=== PATIENT | female | born 1950 | race Caucasian/White ===

== ENCOUNTER 2019-02-17 09:33 | Day surgery (SDC) | payer MEDICARE, BC ==
[2019-02-12 11:42] VITALS: BMI 25.1
[~2019-02-17 09:33] MED LIST: DEXAMETHASONE SOD PHOSPHATE 10 MG/ML 1 ML VIAL IV ONE; LACTATED RINGERS 1,000 ML IV SCH; LIDOCAINE 1% 20 ML VIAL (10MG/ML) FOR IV START INTRADERMA PRN; MORPHINE SULFATE 4 MG/ML SYRINGE IV PRN; MOXIFLOXACIN HCL 0.5% DROPS 3 ML BTL OP ONE; ONDANSETRON 4 MG/2 ML VIAL IVP ONE; TETRACAINE 0.5% OPHTH (PF) DROPS 4 ML BTL OP ONE; TIMOLOL 0.5% OPHTH DROPS 5 ML BTL OP ONE
[2019-02-17 10:52] VITALS: TEMP 97.4
[2019-02-17] MEDS: CYCLOPENTOLATE 1% OPHTH SOLN 2 ML BTL OP ONE ×3 (10:53→11:05)
[2019-02-17] MEDS: PHENYLEPHRINE 2.5% OPHTH DRP 2ML OP NR ×3 (10:56→11:08)
[2019-02-17] MEDS ORDERED: fentaNYL (PF) 50 MCG/ML 2 ML AMP ONE (11:27)
[2019-02-17] MEDS ORDERED: MIDAZOLAM 2 MG/2 ML VIAL ONE (11:27)
[2019-02-17] MEDS ORDERED: DUOVISC KIT (GREEN BOX) INTRAOCULA ONE (11:36)
[2019-02-17] MEDS ORDERED: LIDOCAINE 1% (PF) 10MG/ML VIAL SQ ONE (11:36)
[2019-02-17] MEDS ORDERED: BALANCED SALT IRRIG SOLN COMB2 15 ML IRRIG.SOLN INTRAOCULA ONE (11:36)
[2019-02-17] MEDS ORDERED: ATROPINE OPHTH SOLN 1% 5ML BTL LEFT EYE ONE (11:36)
[2019-02-17] MEDS ORDERED: EPINEPHrine (PF) 0.3 ML in BALANCED SALT IRRIG SOLN COMB2 500 ML IRRIGATION ONE (11:37)
[2019-02-17] MEDS ORDERED: TRYPAN BLUE 0.06% SYRINGE 0.5 ML SYRINGE INTRAOCULA ONE (11:47)
--- NOTE | 2019-02-17 12:21 | P.OP ---
Date of Procedure: 02/17/19 Preoperative Diagnosis: NS & PSC, POAG mild stage and regular astigmatism Postoperative Diagnosis: same Procedure(s) Performed: PIOL, OS, goniotomy left eye Implants: AO1UV 16.00 Anesthesia: MAC Surgeon: Oziel Mcarthur Estimated Blood Loss (ml): 3 Pathology: none sent Condition: stable Disposition: same day Indications for Procedure: blurry vision and glaucoma Description of Procedure: no complications
[2019-02-17 12:37] VITALS: BP 130/58; PULSE 55; RESP 15
--- NOTE | 2019-02-17 23:43 | OP ---
OPERATIVE REPORT DATE OF SURGERY: February 17, 2019. PROCEDURES PERFORMED: Phacoemulsification of cataract and intraocular lens implant of the left eye with goniotomy. PREOPERATIVE DIAGNOSES: Nuclear sclerosis, cortical sclerosis, posterior subcapsular cataract and pigmentary glaucoma, mild stage. POSTOPERATIVE DIAGNOSIS: Nuclear sclerosis, cortical sclerosis, posterior subcapsular cataract and pigmentary glaucoma, mild stage. SURGEON: Dr. Oziel Mcarthur. ANESTHESIA: Topical. ESTIMATED BLOOD LOSS: Probably 3 mL. SPECIMEN: Taken none. NARRATIVE: After obtaining the appropriate consent, the patient was brought to the operating room. There she was placed under cardiac monitoring, prepped and draped in the usual sterile manner. She was approached from her left temporal side and at the 5 o'clock position an MVR blade was used to create a paracentesis port through this opening 1% lidocaine MPF 50 50 mix with balanced salt solution was injected into the anterior chamber. This was followed by installation of trypan blue which was left in the eye for 1 minute. This was irrigated away and replaced with Viscoat. On the center of the patient's eye, a 5.5 mm Rustam ring was placed centrally over the Purkinje reflex. At the 3 o'clock position a 2.75 mm trinh keratome was used to create a self-sealing corneal flap incision in Langerman's fashion. Additional Viscoat was used to stabilize the anterior chamber. The patient was asked to rotate her head to her right approximately 45 degrees and a gonio prism was placed on the patient's eye. Identification of the trabecular meshwork was readily identified with the trypan blue stain and using a darren and meet method, a goniotomy using the [place] dual blade knife removed the trabecular meshwork for approximately 5 clock hours on the nasal side of the eye. She was then rotated back to the normal supine position and a cystotome was introduced to begin a continuous tear capsulorrhexis which was completed using the Utrata forceps. Care was taken to ensure that the size of the rhexis was at least the size of the inked marked on the patient's cornea. Hydrodissection and hydrodelineation. The lens was accomplished with balanced salt solution. Phacoemulsification lens utilizing phaco chop was approximately 8 seconds at 15% power. This was followed by removal of the remaining cortex under irrigation aspiration along with careful polishing of the posterior capsule in the capsule vacuum mode. Provisc was then used to stabilize the capsular bag and using the [place] and [place] capsule polisher devices the entire 360 degrees of the capsular bag was covered from the equator over the anterior capsule leaflets removing as much of the cortexes as easily identified. The temporal incision was then enlarged slightly with a keratome and a Bausch and Lomb crystal lens AOU 2V 16 diopter posterior chamber intraocular lens was then inserted into the capsular bag without difficulty. The remaining viscoelastic was then removed from in and around the intraocular lens in the eye and the lid intraocular lens was rotated approximately 270 degrees, insuring that there was no debris at the equator of the bag. The eye was brought slightly above normal intra-ocular pressure approximately 25-30 mmHg by palpation, thereby tamponading any residual bleeding from the goniotomy incision and the paracentesis as well as the temporal incision were covered with ReSure. The patient then received 2 drops of moxifloxacin, 2 drops of 1% atropine and 2 drops of 0.5% timolol. She was then lightly patched and shielded in the usual manner. There were no complications from the procedure. She tolerated the procedure well and was returned to outpatient recovery in good condition. MMODL / IJN: [id number] /
== END 2019-02-17 13:04 | disposition home or self-care (01) ==
LOC: OR 09:33
PROVIDERS: ATTEND Ophthalmology
DX: H25.13 Age-related nuclear cataract, bilateral (principal); H52.222 Regular astigmatism, left eye; H40.1332 Pigmentary glaucoma, bilateral, moderate stage; H21.233 Degeneration of iris (pigmentary), bilateral; H35.372 Puckering of macula, left eye; H47.391 Other disorders of optic disc, right eye; H25.013 Cortical age-related cataract, bilateral; H00.023 Hordeolum internum right eye, unspecified eyelid; H00.026 Hordeolum internum left eye, unspecified eyelid; H52.13 Myopia, bilateral; H52.4 Presbyopia; K21.9 Gastro-esophageal reflux disease without esophagitis; Z87.891 Personal history of nicotine dependence; H25.042 Posterior subcapsular polar age-related cataract, left eye; I10 Essential (primary) hypertension; E78.5 Hyperlipidemia, unspecified; I48.92 Unspecified atrial flutter; L40.9 Psoriasis, unspecified; Z79.890 Hormone replacement therapy; Z79.51 Long term (current) use of inhaled steroids; Z79.2 Long term (current) use of antibiotics; Z79.899 Other long term (current) drug therapy; Z79.01 Long term (current) use of anticoagulants; Z88.8 Allergy status to other drugs, medicaments and biological substances
CPT/HCPCS: 66984; 65820; V2632; V2788; J2250; J0171; J3010; J2001

== ENCOUNTER → 2019-03-24 | Day surgery (SDC) | payer MEDICARE, BC, OTHER ==
[2019-03-22 14:14] VITALS: BMI 26.3
[~2019-03-24] MED LIST changes: +BALANCED SALT IRRIG SOLN COMB2 15 ML IRRIG.SOLN IRRIGATION ONE; +CHONDROITIN-SOD HYALURONATE 1 EACH SYRINGE (0.75 ML) INTRAOCULA ONE; +DUOVISC KIT (GREEN BOX) INTRAOCULA ONE; +EPINEPHrine (PF) 0.3 ML in BALANCED SALT IRRIG SOLN COMB2 500 ML IRRIGATION ONE; +LIDOCAINE 1% (PF) 10MG/ML VIAL SQ ONE; +MIDAZOLAM 2 MG/2 ML VIAL IV ONE; +MIDAZOLAM 2 MG/2 ML VIAL ONE; -MORPHINE SULFATE 4 MG/ML SYRINGE IV PRN; +TRYPAN BLUE 0.06% SYRINGE 0.5 ML SYRINGE INTRAOCULA ONE; +fentaNYL (PF) 50 MCG/ML 2 ML AMP ONE
[2019-03-24] MEDS: CYCLOPENTOLATE 1% OPHTH SOLN 2 ML BTL OP ONE ×3 (13:11→13:26)
[2019-03-24 13:13] VITALS: RESP 18; TEMP 97.4
[2019-03-24] MEDS: PHENYLEPHRINE 2.5% OPHTH DRP 2ML OP NR ×3 (13:15→13:29)
--- NOTE | 2019-03-24 15:08 | P.OP ---
Date of Procedure: 03/24/19 Preoperative Diagnosis: NS & CS & POAG mild stage Postoperative Diagnosis: same Procedure(s) Performed: goniotomy & pciol, OD Implants: BL1UT 15 x 2.00 Anesthesia: MAC Surgeon: Oziel Mcarthur Estimated Blood Loss (ml): 5 Pathology: none sent Condition: stable Disposition: same day Indications for Procedure: blurry vision and glaucoma control Operative Findings: no ccomplications
[2019-03-24 15:31] VITALS: BP 120/68; PULSE 65
--- NOTE | 2019-03-25 07:48 | OP ---
OPERATIVE REPORT DATE OF SURGERY: 03/24/2019. PROCEDURE: Phacoemulsification of the cataract with an intra-ocular lens implant and goniotomy of the right eye. PREOPERATIVE DIAGNOSES: Nuclear sclerosis, cortical sclerosis, regular astigmatism, and primary open- angle glaucoma, moderate stage. POSTOPERATIVE DIAGNOSES: Nuclear sclerosis, cortical sclerosis, regular astigmatism, and primary open- angle glaucoma, moderate stage. SURGEON: Dr. Oziel Mcarthur ANESTHESIA: Topical. ESTIMATED BLOOD LOSS: Less than 5 mL. SPECIMEN TAKEN: None. NARRATIVE: After obtaining the appropriate consent, the patient was brought to the operating room. There she was asked to sit upright and the axis of 0 and 180 degrees were identified and marked with a gentian rip marker. She was then placed in the proper supine position under cardiac monitoring, then prepped and draped in the usual sterile manner. She was approached from her right temporal side and at the 11 o'clock position an MVR blade was used to create a paracentesis port. Through this opening 1% lidocaine MPF 50- 50 mix of balanced salt solution was injected into the anterior chamber. This was followed by installation of Trypan blue which was left to dwell for approximately 1 minute. Trypan blue was then irrigated from the anterior chamber and the anterior chamber was then stabilized with Viscoat. At the 9 o'clock position, a 2.75 mm trinh keratome was used to create a self-sealing corneal flap incision in a Langerman's fashion. Additional Viscoat was placed on the patient's cornea. The patient was then asked to rotate approximately 45 degrees to her left and maintain her gaze in that general direction. A gonioscopy prism was placed on the patient's eye and the trabecular meshwork was readily identified. Using a darren and meet method, the [place] dual blade goniotomy knife was passed across the anterior chamber of the eye and approximately 5 clock hours of trabecular meshwork were removed from the angle. A moderate amount of bleeding was noted as would be expected. The patient was returned to the normal supine position and a 5.5 mm Rustam ring was placed on the patient's cornea. This was followed by placement of a corneal marking instrument set to an axis of 116 degrees as previously identified on topography information, which was also enhanced with a gentian rip marker. A cystotome was then introduced into the anterior chamber to begin a continuous tear capsulorrhexis which was then completed using the Utrata forceps. Hydrodissection and hydrodelineation of the lens were accomplished with balanced salt solution. Phacoemulsification lens utilizing phaco chop was accomplished in 13.31 seconds at 12% power. Additional xylocaine MPF was instilled into the anterior chamber. This was followed by removal of the remaining cortex from the capsular bag along with careful polishing of the posterior capsule under the capsule polishing mode. Provisc was then used to stabilize the capsular bag and using [place] and arley corneal polishing instruments, the underside of the anterior capsular leaflet as well as the equator were cleaned as effectively possible with these instruments for approximately 360 degrees. The temporal incision was then enlarged slightly with a keratome and a Bausch and Lomb true line model BL1UT 15 diopter x 2 diopter posterior chamber intraocular lens was then inserted into the capsular bag without difficulty. The irrigation aspiration instrument was then introduced to remove the remaining cortex as well as the viscoelastic material. The tip of the instrument was then used to also rotate the intra-ocular lens into its proper orientation in alignment with 160 degree axis which had been placed on the patient's cornea. When the orientation was confirmed, posterior pressure was directed against the posterior capsule by placement of the irrigation aspiration instrument on the anterior surface of the intra-ocular lens to facilitate locking the implant in position. The irrigation aspiration instrument was then carefully removed from the anterior chamber and the eye was then brought to slightly above normal intra-ocular pressure approximately 30 mm by palpation to reduce any post goniotomy hemorrhage from part in the anterior chamber. To ensure proper watertight integrity, ReSure was then painted on the paracentesis as well as the temporal incisions. This was followed by 2 drops of 1% atropine as well as 2 drops of 0.5% timolol and 2 drops of moxifloxacin. The eye was then lightly patched and shielded in the usual manner. There were no complications encountered during the procedure. She tolerated the procedure reasonably well and was returned to recovery in good condition. MMODL / IJN: [id number] / MTDD
== END | disposition home or self-care (01) ==
LOC: OR 11:19
PROVIDERS: ATTEND Ophthalmology
DX: H25.811 Combined forms of age-related cataract, right eye (principal); H40.1112 Primary open-angle glaucoma, right eye, moderate stage; H21.23 Degeneration of iris (pigmentary); H00.023 Hordeolum internum right eye, unspecified eyelid; H00.026 Hordeolum internum left eye, unspecified eyelid; H40.1332 Pigmentary glaucoma, bilateral, moderate stage; H47.391 Other disorders of optic disc, right eye; H35.372 Puckering of macula, left eye; H21.233 Degeneration of iris (pigmentary), bilateral; H40.053 Ocular hypertension, bilateral; H52.4 Presbyopia; H52.13 Myopia, bilateral; K21.9 Gastro-esophageal reflux disease without esophagitis; D03.9 Melanoma in situ, unspecified; I10 Essential (primary) hypertension; M47.892 Other spondylosis, cervical region; L40.9 Psoriasis, unspecified; I48.92 Unspecified atrial flutter; Z98.890 Other specified postprocedural states; Z98.42 Cataract extraction status, left eye; Z96.1 Presence of intraocular lens; Z85.820 Personal history of malignant melanoma of skin; Z98.811 Dental restoration status; Z87.42 Personal history of other diseases of the female genital tract; Z87.2 Personal history of diseases of the skin and subcutaneous tissue; Z79.899 Other long term (current) drug therapy; Z79.01 Long term (current) use of anticoagulants; Z79.52 Long term (current) use of systemic steroids; Z79.890 Hormone replacement therapy; Z87.891 Personal history of nicotine dependence; Z83.52 Family history of ear disorders; Z83.511 Family history of glaucoma; Z82.61 Family history of arthritis; Z82.49 Family history of ischemic heart disease and other diseases of the circulatory system; Z83.49 Family history of other endocrine, nutritional and metabolic diseases
CPT/HCPCS: 65820; 66984; V2787; C1780; J2250; J0171; J3010; J2001